=== PATIENT | male | born 1980 | race African-American/Black ===

== ENCOUNTER 2020-02-24 12:34 | Emergency (ER) | payer SELFPAY ==
[~2020-02-24] VITALS: Ht 177.8 cm; Wt 87.0 kg
[2020-02-24 12:38] VITALS: BP 113/61
[2020-02-24] MEDS ORDERED: ONDANSETRON 2MG/ML, 2ML ONE (12:57)
[2020-02-24] MEDS ORDERED: MORPHINE SULFATE 4 MG/ML, 1ML ONE ×2 (12:57→13:11)
[2020-02-24] MEDS ORDERED: SODIUM CHLORIDE FLUSH 10ML SYR IVF ONE (13:00)
[2020-02-24] MEDS ORDERED: ONDANSETRON 2MG/ML, 2ML IVPush ONE (13:00)
[2020-02-24] MEDS: MORPHINE SULFATE 4 MG/ML, 1ML IVPush PRN ×2 (13:00→13:14)
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
[2020-02-24] MEDS ORDERED: PLEASE ENTER ALLERGIES MC SCH (13:30)
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
== END 2020-02-24 14:13 | disposition home or self-care (01) ==
LOC: ED 13:30
DX: S43.004A Unspecified dislocation of right shoulder joint, initial encounter (principal); F10.129 Alcohol abuse with intoxication, unspecified; F12.129 Cannabis abuse with intoxication, unspecified; Y08.89XA Assault by other specified means, initial encounter; Y93.89 Activity, other specified; Y92.488 Other paved roadways as the place of occurrence of the external cause; Y99.8 Other external cause status; Y90.9 Presence of alcohol in blood, level not specified
CPT/HCPCS: 73030; 96374; 96375; 99284; J2270; J2405

== ENCOUNTER 2020-02-27 07:53 | Emergency (ER) | payer SELFPAY ==
[~2020-02-27] VITALS: Ht 175.3 cm; Wt 87.0 kg
[2020-02-27] MEDS ORDERED: KETOROLAC 30 MG/1 ML ONE (08:22)
[2020-02-27] MEDS ORDERED: KETOROLAC 30 MG/1 ML IM ONE (08:30)
--- NOTE | 2020-02-27 08:30 | NUR ---
PT MEDICATED PER [facility]. FOOT SOAK STARTED FOR LEFT FOOT.
[2020-02-27 09:03] VITALS: BP 105/69
== END 2020-02-27 09:04 | disposition home or self-care (01) ==
LOC: ED 08:40
DX: G89.11 Acute pain due to trauma (principal); M25.511 Pain in right shoulder; X58.XXXA Exposure to other specified factors, initial encounter; Y93.89 Activity, other specified; Y92.328 Other athletic field as the place of occurrence of the external cause; Y99.8 Other external cause status
CPT/HCPCS: 96372; 99283; J1885

== ENCOUNTER 2020-02-29 04:16 | Emergency (ER) | payer SELFPAY ==
[~2020-02-29] VITALS: Ht 180.3 cm; Wt 67.0 kg
[2020-02-29 04:21] VITALS: BP 142/90
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
--- NOTE | 2020-02-29 05:25 | NUR ---
Patient at Rn desk using telephone. He is agitated and using obscene language. Preparing to call hospital security to have patient escorted out of ER. He is discharged.
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
== END 2020-02-29 05:39 | disposition left against medical advice (07) ==
LOC: ED 05:30
DX: M24.411 Recurrent dislocation, right shoulder (principal); B35.3 Tinea pedis
CPT/HCPCS: 99282